=== PATIENT | male | born 1960 | race Caucasian/White ===

== ENCOUNTER → 2020-10-02 18:33 | Outpatient (REF) | payer SELFPAY ==
[2020-10-02 13:53] LABS: Abs Immature Grans 0.04 10^3/uL (0.0-0.06); Absolute Basophil Count 0.04 10^3/uL (0.0-0.2); Absolute Eosinophil Count 0.33 10^3/uL (0.0-0.7); Absolute Lymphocyte Count 1.55 10^3/uL (1.2-3.4); Absolute Monocyte Count 0.58 10^3/uL (0.1-0.8); Absolute Neutrophil Count 3.91 10^3/uL (1.2-6.7); Basophils % 0.6; Eosinophils % 5.1; HCT 44.3 % (40.0-50.0); HGB 15.2 g/dL (13.5-17.5); Immature Grans % 0.6; MCH 32.7 pg (27.0-33.0); MCHC 34.3 % (32.0-36.0); MCV 95.3 fL (80-95); MPV 11.1 fL (8.0-11.0); Neutrophils % 60.7; Nucleated RBC 0 %; RBC 4.65 10^6/uL (4.36-5.78); RDW 11.6 % (11.8-14.1); RDW-SD 40.2 fL; WBC 6.45 10^3/uL (4.4-10.8)
[2020-10-02 14:30] LABS: Diff Comment PLT Morph Reviewed
[2020-10-02 14:35] LABS: Poikilocytes 1+; Polychromasia Present
[2020-10-02 14:44] LABS: ALT 34 U/L (16-63); AST 18 U/L (15-37); Albumin 3.9 g/dL (3.4-5.0); Alkaline Phosphatase 81 U/L (46-116); Anion Gap 8.9 mmol/L (3-11); BUN 21 mg/dL (7-18); Bilirubin, Total 0.6 mg/dL (0.2-1.0); CO2 25.1 mmol/L (21.0-32.0); CREATININE 0.9 mg/dL (0.70-1.30); Calcium 9.3 mg/dL (8.5-10.1); Chloride 103 mmol/L (98-107); Glucose 101 mg/dL (74-106); Potassium 4.3 mmol/L (3.5-5.1); Sodium 137 mmol/L (136-145)
[2020-10-02 15:13] LABS: LDH 195 U/L (85-227); NT-proBNP 69 pg/mL (<300); Total Protein 7.2 g/dL (6.4-8.2)
== END ==
LOC: NCHCN 18:33
PROVIDERS: PCP Family Medicine; Visit Provider Internal Medicine
DX: R06.09 Other forms of dyspnea (principal); R05 Cough; R06.2 Wheezing; R61 Generalized hyperhidrosis
CPT/HCPCS: 80053; 83615; 83880; 85025

== ENCOUNTER 2020-10-03 01:28 | Outpatient (CLI) | payer SELFPAY ==
--- NOTE | 2020-10-03 13:33 | DI.RAD_ITS ---
EXAM: XR CHEST 2V PA LATERAL CLINICAL HISTORY: WHEEZING,R06.2,CHRONIC COUGH, R05,SWEATING TECHNIQUE: 2D digital imaging was performed. COMPARISON: No exams were available for comparison FINDINGS: MEDIASTINUM: Normal. HEART: Normal. PULMONARY VASCULATURE: Normal. LUNGS: Clear. PLEURAL SPACE: No pleural effusion or pneumothorax. BONE:Within normal limits for the patient's age. OTHER FINDINGS:Normal. IMPRESSION: No acute pulmonary findings. DATA REPOSITORY: RADIATION DOSE DELIVERED:
== END 2020-10-03 01:29 | disposition home or self-care (01) ==
LOC: DI 01:29
PROVIDERS: PCP Family Medicine; Visit Provider Internal Medicine
DX: R06.2 Wheezing (principal); R05 Cough; R61 Generalized hyperhidrosis
CPT/HCPCS: 71046

== ENCOUNTER 2021-02-19 08:45 | Outpatient (REF) | payer BC, SELFPAY ==
[2021-02-19 15:03] LABS: Vitamin D 25 Total 40.8 ng/mL (30-100)
[2021-02-19 15:06] LABS: ALT 36 U/L (16-63); AST 21 U/L (15-37); Albumin 3.7 g/dL (3.4-5.0); Alkaline Phosphatase 87 U/L (46-116); Anion Gap 10.5 mmol/L (3-11); BUN 19 mg/dL (7-18); Bilirubin, Total 0.3 mg/dL (0.2-1.0); CO2 25.5 mmol/L (21.0-32.0); CREATININE 0.9 mg/dL (0.70-1.30); Calcium 8.4 mg/dL (8.5-10.1); Chloride 105 mmol/L (98-107); Cholesterol 234 mg/dL (<200); Glucose 111 mg/dL (74-106); HDL Cholesterol 31 mg/dL (40-60); Sodium 141 mmol/L (136-145); Total Protein 6.4 g/dL (6.4-8.2); Triglyceride 637 mg/dL (<150)
[2021-02-19 15:20] LABS: LDL CHOLESTEROL 99 mg/dL (<100)
[2021-02-19 22:27] LABS: PSA, Screening 0.6 ng/mL (0.0-3.5)
== END 2021-02-19 08:46 | disposition home or self-care (01) ==
LOC: NCHCN 08:45
PROVIDERS: PCP Family Medicine; Visit Provider Family Medicine
DX: Z00.00 Encounter for general adult medical examination without abnormal findings (principal); E55.9 Vitamin D deficiency, unspecified; I10 Essential (primary) hypertension; N52.9 Male erectile dysfunction, unspecified; Z12.5 Encounter for screening for malignant neoplasm of prostate
CPT/HCPCS: 80053; 80061; 82306; 83721; 84153

== ENCOUNTER 2021-03-22 10:17 | Emergency (ER) | payer BC, SELFPAY ==
[2021-03-22] VITALS (43 sets, daily range): BP systolic 128–142; BP diastolic 82–103; PULSE 48–76; RESP 10–22; TEMP 36.6; O2SAT 93–99
--- NOTE | 2021-03-22 10:15 | RT.EKG_ITS ---
APPROVED REPORT Exam: Resting ECG Reason for Exam: dizzy Patient Location: E HR:63 bpm ECG Measurements Heart Rate 63 AXIS IA 238 P 2 QRSd 98 QRS 3 QT 383 T 12 QTc 392 Conclusion Sinus rhythm...normal P axis, V-rate 60- 99 Prolonged IA interval...IA >210, V-rate 50- 90
--- NOTE | 2021-03-22 10:45 | DI.CT_ITS ---
Exam(s) CT BRAIN NECK CTA EXAM: CT BRAIN NECK CTA CLINICAL HISTORY: Dizziness elevated blood pressure. TECHNIQUE: Imaging Protocol: Axial CT angiography was performed with multi-slice acquisition and mu lti-planar and/or 3D reconstructions. CONTRAST MATERIAL: Intravenous: Omnipaque 350 Contrast volume:structured data in ml COMPARISON: No exams were available for comparison FINDINGS: CTA Neck W: Aortic arch anatomy: The aortic arch anatomy is conventional. Anterior circulation: Both common carotid arteries exhibit normal luminal diameter. There is mild plaque on the lateral wa ll of the left carotid bifurcation-proximal left internal carotid artery but no tight stenosis at thi s level and the left internal carotid artery is patent above this level in the neck all, albeit somew hat tortuous. On the right side there is plaque on the medial wall of the carotid bulb and proximal ICA but without a significant tight stenosis at this level nor above this level in the right ICA within the neck. Posterior circulation: Both vertebral arteries originated conventional fashion off of the subclavian arteries. No prominent stenosis in the subclavian arteries proximal to the vertebral artery takeoff points. The left verte bral artery is dominant and is the main contributor to the formation of the thin basilar artery at th e skull base. The right vertebral artery is thinner diameter throughout its length and terminates at the base of the skull CTA Brain W: Anterior circulation: Both internal carotid arteries are patent in the skull base-carotid canals as well as within the intr a cavernous sinuses. The supraclinoid aspects of these vessels are patent and nonaneurysmal. Both m iddle cerebral arteries are patent. Both A1 segments are patent anterior cerebral arteries are paten t. No obvious aneurysm evident at the level of the anterior communicating artery. Posterior circulation: The thin basilar artery is formed by the dominant left vertebral artery. The right vertebral artery ends at the skull base. Distally the thin basilar artery gives off superior cerebellar arteries. Th e posterior cerebral arteries are predominantly fed by posterior communicating arteries both sides th e wlavpj-[id number]-persisting circulation. There is no aneurysm of the tip of the basilar saw ry nor elsewhere in the [id number]-tm-Yykvon. CT BRAIN: There is no evidence of intracranial hemorrhage, mass effect, or shift of midline structures. There are no extra-axial fluid collections. Ventricles are not enlarged or shifted and there is no blood w ithin the ventricular system nor within the basal cisterns. There are no ring enhancing lesions in t he brain and no abnormal meningeal enhancement. IMPRESSION: 1. Mild plaque bilaterally in the carotid bulbs and proximal ICAs but no tight stenosis at these leve ls. 2. The left vertebral artery is dominant. The thinner right vertebral artery terminates at the skul l base. 3. Patent intracranial arteries. Persistent circulation of posterior cerebral arteries which are predominantly fed by posterior communicating arteries on both sides of the [id number]. There no ring enhancing lesions in the brain. No evidence of intracranial hemorrhage. No obvious CT evidence of infarct. RADIATION DOSE DELIVERED: 2,056.42mGy.cm Total DLP DATA REPOSITORY: All CT scans at this facility are submitted to the National Radiology Data Registry (NRDR) Dose Index Registry (DIR) with the [employer] (ACR). RADIATION OPTIMIZATION: All CT scans at this facility use at least one of these dose optimization te chniques: automated exposure control; mA and/or kV adjustment per patient size (includes targeted exa ms where dose is matched to clinical indication); or iterative reconstruction.
[2021-03-22] MEDS: Meclizine 12.5 MG TAB PO (10:54)
--- NOTE | 2021-03-22 10:54 | ED.GENADUL_ITS ---
Discharge Plan Disposition Patient Disposition: HOME Condition: Improving Discharge Details Clinical Impression: Episodic peripheral vertigo Primary Care Provider: Melvin Oden ED Provider: Levi Edwards Home Meds and New Rx's Prescriptions: New meclizine 12.5 mg tablet 12.5 mg PO BID PRN (Reason: dizziness) Qty: 14 RF: 0 Continued fexofenadine 180 MG tablet 180 mg PO DAILY RF: 0 pravastatin 10 MG tablet 10 mg PO DAILY RF: 0 lisinopril 10 MG tablet 10 mg PO DAILY RF: 0 cholecalciferol (vitamin D3) 50,000 UNIT capsule 50,000 unit PO WEEKLY RF: 0 aspirin 325 MG tablet 325 mg PO DAILY RF: 0 Discharge Instructions Instructions: Vertigo (ED) Additional Instructions: Home to rest tonight. Sleep with the head of the bed elevated 2-3 pillows for 2-3 nights. No rapid movements of the head. Return to the emergency department for any acute concerns. Please follow-up with physical therapy. May use the prescribed meclizine as needed for intermittent episodes of recurrent vertigo. Follow-up with [facility] for recheck. Stand Alone Forms: Physical Therapy Referral Medical Decision Making 60-year-old male with a history of hypertension. 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 He went home to check his blood pressure which is elevated at 150. He did not have headache, syncope, chest pain or palpitations. He states to me has had progressive intermittent episodes of this over approximately 10 years and now avoids abrupt movements of the head or doing work well looking overhead. He arrives with cranial nerves intact and no focal neurologic deficits. His exam reveals a rightward gaze horizontal nystagmus with 3-4 beat seccade. Differential diagnosis is broad and includes peripheral vertigo, must exclude intracranial mass or lesion. He does not have significant hypertension I do not feel this is hypertensive urgency. Patient IV access established Given fluid bolus and meclizine. Referred for laboratory testing and CT of the head and neck.. CBC unremarkable, chemistries reassuring, troponin negative. Patient served on equipment monitor phototypesetting and repeat troponin obtained and negative and negative.. CTA without acute intracranial findings. No lesions. See formal report. Patient improved following meclizine. Given his recurrent and stuttering episodes of a similar nature, I do feel this is peripheral vertigo. I will refer him to physical therapy as well as provided with a prescription for meclizine. He is stable and improved at this time. HPI General Mode of arrival: ambulatory . Date/Time Provider Initiated Documentation: 03/22/21 10:21 . Limitations to Documentation: no limitations . Information obtained by: patient . History of Present Illness 60 year old M presents to the emergency department with the chief complaint of Lightheaded, dizzy, elevated blood pressure, described as moderate and similar to prior episodes, and is localized to the head. Patient reports no radiation. Patient started experiencing this minute(s) and it has been intermittent. Rest improves symptom(s), Movement worsens symptoms . Patient notes denies chest pain, fever/chills, headaches, syncope and weakness. Patient did receive the following treatments prior to arrival, none Related Data Home Medications Medication Instructions Recorded Confirmed aspirin 325 mg PO DAILY tab-cap 01/18/16 03/22/21 cholecalciferol (vitamin D3) 50,000 unit PO WEEKLY tab-cap 01/18/16 03/22/21 fexofenadine 180 mg PO DAILY tab-cap 01/18/16 03/22/21 lisinopril 10 mg PO DAILY tab-cap 01/18/16 03/22/21 pravastatin 10 mg PO DAILY tab-cap 01/18/16 03/22/21 meclizine 12.5 mg PO BID PRN #14 tab 03/22/21 Previous Rx's Medication Instructions Recorded meclizine 12.5 mg PO BID PRN #14 tab 03/22/21 Allergies Allergy/AdvReac Type Severity Reaction Status Date / Time No Known Allergies Allergy Verified 10/10/20 10:23 General Stated Complaint: Dizzy/Sync SHANKAR: 3 Review of Systems Narrative: Has noticed similar with abrupt movements of his head, no longer does overhead work. No recent illness. No chest pain or palpitations. 8 systems reviewed and otherwise negative [facility] Surgical History (Updated 03/22/21 @ 10:55 by Levi Edwards MD) History of Santiago fundoplication Social History Smoking/Tobacco Use Status: Never Smoking risk assessment performed?: Yes Alcohol Intake: current Alcohol Intake frequency: 3 or more drinks per day Drug use: Never Substance use type: does not use Do you feel safe at home: Yes Do you feel safe in your relationship?: Yes Exam Narrative Exam Narrative: GEN: awake, alert, oriented 3. Pleasant, well groomed, interactive. HEAD: Normocephalic, atraumatic ENT: Mucous membranes moist, oropharynx unremarkable, External ear exam unremarkable EYES: PERRL, EOMI NECK: Full ROM, no NATALIE, no menigismus CHEST/RESP: Nontender, clear to auscultation bilateral, no wheeze/rhonchi/rales CARDIOVASCULAR: RRR, no murmur, rub arleth. 2+ Rad pulse bilateral ABDOMEN: Soft, nontender, no mass. +Bowel sounds EXT: Full ROM, no edema, no rash Neuro: Cranial nerves II through XII intact. Rightward horizontal 3-4 beat nystagmus. grossly normal neurologic exam, conversant, interactive. Psych: Speech fluent, thoughts congruent, affect normal Course Vital Signs Vital signs: Vital Signs Temperature 36.6 C 03/22/21 10:24 Pulse 76 03/22/21 10:24 Respiratory Rate 18 03/22/21 10:24 Blood Pressure 142/96 H 03/22/21 10:24 Pulse Oximetry 96 03/22/21 10:24 Temperature 36.6 C 03/22/21 10:24 Temperature Source Temporal Artery Scan 03/22/21 10:24 Pulse 76 03/22/21 10:24 Respiratory Rate 18 03/22/21 10:48 Respiratory Effort Non-Labored 03/22/21 10:48 Respiratory Depth Normal 03/22/21 10:48 Respiratory Pattern Normal 03/22/21 10:48 Blood Pressure 142/96 H 03/22/21 10:24 Blood Pressure Position Sitting 03/22/21 10:24 Pulse Oximetry 96 03/22/21 10:24 Oxygen Delivery Method Room Air 03/22/21 10:24 Oxygen Flow Rate 0 03/22/21 10:24
[2021-03-22 11:01] LABS: Abs Immature Grans 0.02 10^3/uL (0.0-0.06); Absolute Basophil Count 0.03 10^3/uL (0.0-0.2); Absolute Eosinophil Count 0.11 10^3/uL (0.0-0.7); Absolute Monocyte Count 0.57 10^3/uL (0.1-0.8); Absolute Neutrophil Count 3.91 10^3/uL (1.2-6.7); Basophils % 0.5; Eosinophils % 1.8; HGB 15.8 g/dL (13.5-17.5); Immature Grans % 0.3; Lymphocytes % 25.6; MCH 32.9 pg (27.0-33.0); MCHC 35.1 % (32.0-36.0); MCV 93.8 fL (80-95); MPV 9.9 fL (8.0-11.0); Monocytes % 9.1; Neutrophils % 62.7; Nucleated RBC 0 %; Platelet Count 272 10^3/uL (130-400); RDW 11.7 % (11.8-14.1); RDW-SD 40.3 fL; WBC 6.24 10^3/uL (4.4-10.8)
[2021-03-22] MEDS: Normal Saline 1,000 ML 1000 ML IV (11:07)
[2021-03-22 11:17] LABS: ALT 40 U/L (16-63); AST 21 U/L (15-37); Albumin 3.9 g/dL (3.4-5.0); Alkaline Phosphatase 85 U/L (46-116); Anion Gap 8.9 mmol/L (3-11); BUN 12 mg/dL (7-18); Bilirubin, Total 0.4 mg/dL (0.2-1.0); CO2 26.1 mmol/L (21.0-32.0); CREATININE 0.9 mg/dL (0.70-1.30); Chloride 104 mmol/L (98-107); Glucose 104 mg/dL (74-106); Potassium 3.9 mmol/L (3.5-5.1); Sodium 139 mmol/L (136-145); Total Protein 7.3 g/dL (6.4-8.2)
[2021-03-22 11:29] LABS: Troponin I < 0.05 ng/mL (<0.06)
[2021-03-22] MEDS: Omnipaque 350 MG/ML 100 ML BTL IV (11:46)
[2021-03-22] MEDS: Normal Saline - Diluent 50 ML VIAL IV (11:47)
[2021-03-22 14:20] LABS: Troponin I < 0.05 ng/mL (<0.06)
== END 2021-03-22 14:59 | disposition home or self-care (01) ==
PROVIDERS: Emergency Provider Emergency Medicine; PCP Family Medicine
DX: H81.399 Other peripheral vertigo, unspecified ear (principal)
CPT/HCPCS: 36415; 70496; 70498; 80053; 93005; 96360; 99285; 83735; 84484; 85025; 93010; 99284; J3490

== ENCOUNTER 2021-08-27 11:19 | Outpatient (REF) | payer BC, SELFPAY ==
[2021-08-27 15:36] LABS: ALT 37 U/L (16-63); AST 16 U/L (15-37); Albumin 3.8 g/dL (3.4-5.0); Alkaline Phosphatase 83 U/L (46-116); Anion Gap 7.5 mmol/L (3-11); BUN 20 mg/dL (7-18); Bilirubin, Total 0.5 mg/dL (0.2-1.0); CO2 27.5 mmol/L (21.0-32.0); Calcium 8.7 mg/dL (8.5-10.1); Calculated LDL 124 mg/dL (<100); Chloride 104 mmol/L (98-107); Cholesterol 223 mg/dL (<200); Glucose 96 mg/dL (74-106); HDL Cholesterol 48 mg/dL (40-60); Potassium 4.5 mmol/L (3.5-5.1); Sodium 139 mmol/L (136-145); Total Protein 6.8 g/dL (6.4-8.2); Triglyceride 257 mg/dL (<150)
== END 2021-08-27 11:20 | disposition home or self-care (01) ==
LOC: NCHCN 11:19
PROVIDERS: PCP Family Medicine; Visit Provider Family Medicine
DX: I10 Essential (primary) hypertension (principal); E78.5 Hyperlipidemia, unspecified
CPT/HCPCS: 80053; 80061

== ENCOUNTER 2022-09-10 18:49 | Outpatient (REF) | payer BC, SELFPAY ==
[2022-09-10 15:22] LABS: Anion Gap 8.5 mmol/L (3-11); BUN 18 mg/dL (7-18); CO2 26.5 mmol/L (21.0-32.0); CREATININE 0.9 mg/dL (0.70-1.30); Calcium 8.8 mg/dL (8.5-10.1); Chloride 104 mmol/L (98-107); Estimated GFR 97.17 (mL/min/1.73m2); Glucose 104 mg/dL (74-106); Potassium 4.3 mmol/L (3.5-5.1); Sodium 139 mmol/L (136-145)
[2022-09-10 16:33] LABS: Hemoglobin A1C 5.4 % (<5.7)
== END 2022-09-10 18:50 | disposition home or self-care (01) ==
LOC: NCHCN 18:49
PROVIDERS: PCP Family Medicine; Visit Provider Family Medicine
DX: I10 Essential (primary) hypertension (principal); E66.9 Obesity, unspecified; F41.9 Anxiety disorder, unspecified
CPT/HCPCS: 80048; 83036

== ENCOUNTER 2022-11-18 15:03 | Outpatient (REF) | payer BC, SELFPAY ==
[2022-11-18 16:17] LABS: Bilirubin Negative (Negative); Blood Negative (Negative); Clarity Clear (Clear); Glucose Negative (Negative); Ketones Negative (Negative); Leukocyte Esterase Negative (Negative); Nitrite Negative (Negative); Specific Gravity 1.025 (1.005-1.025); Urobilinogen 0.2 mg/dL (Up to 0.2)
== END 2022-11-18 15:04 | disposition home or self-care (01) ==
LOC: NCHCN 15:03
PROVIDERS: PCP Family Medicine; Visit Provider Family Medicine
DX: R31.21 Asymptomatic microscopic hematuria (principal)
CPT/HCPCS: 81003

== ENCOUNTER 2023-09-16 15:38 | Outpatient (REF) | payer BC, SELFPAY ==
[2023-09-16 21:27] LABS: HCT 45.9 % (40.0-50.0); MCH 33.3 pg (27.0-33.0); MCHC 34.9 % (32.0-36.0); MCV 96 fL (80-95); MPV 10.2 fL (8.0-11.0); Platelet Count 283 10^3/uL (130-400); RDW 11.3 % (11.8-14.1); RDW-SD 39.9 fL; WBC 7.91 10^3/uL (4.4-10.8)
[2023-09-16 21:44] LABS: ALT 47 U/L (16-63); AST 24 U/L (15-37); Albumin 3.9 g/dL (3.4-5.0); Alkaline Phosphatase 75 U/L (46-116); Anion Gap 8.5 mmol/L (3-11); BUN 21 mg/dL (7-18); Bilirubin, Total 0.6 mg/dL (0.2-1.0); CO2 25.5 mmol/L (21.0-32.0); CREATININE 1.1 mg/dL (0.70-1.30); Chloride 104 mmol/L (98-107); Glucose 92 mg/dL (74-106); Potassium 4.1 mmol/L (3.5-5.1); Sodium 138 mmol/L (136-145)
[2023-09-16 22:00] LABS: Hemoglobin A1C 5.4 % (<5.7)
== END 2023-09-16 15:39 | disposition home or self-care (01) ==
LOC: NCHCN 15:38
PROVIDERS: PCP Family Medicine; Visit Provider Family Medicine
DX: I10 Essential (primary) hypertension (principal); R73.9 Hyperglycemia, unspecified
CPT/HCPCS: 80053; 85027; 83036

== ENCOUNTER 2024-03-31 17:22 | Outpatient (REF) | payer BC, SELFPAY ==
[2024-03-31 21:09] LABS: Abs Immature Grans 0.02 10^3/uL (0.0-0.06); Absolute Basophil Count 0.05 10^3/uL (0.0-0.2); Absolute Eosinophil Count 0.51 10^3/uL (0.0-0.7); Absolute Lymphocyte Count 1.54 10^3/uL (1.2-3.4); Absolute Monocyte Count 0.71 10^3/uL (0.1-0.8); Absolute Neutrophil Count 4.46 10^3/uL (1.2-6.7); Basophils % 0.7 %; HCT 44.1 % (40.0-50.0); HGB 14.9 g/dL (13.5-17.5); Immature Grans % 0.3 %; Lymphocytes % 21.1 %; MCH 33.4 pg (27.0-33.0); MCHC 33.8 % (32.0-36.0); MCV 99 fL (80-95); MPV 10.1 fL (8.0-11.0); Monocytes % 9.7 %; Neutrophils % 61.2 %; Platelet Count 250 10^3/uL (130-400); RBC 4.46 10^6/uL (4.36-5.78); RDW 11.9 % (11.8-14.1); RDW-SD 43.2 fL; WBC 7.29 10^3/uL (4.4-10.8)
[2024-03-31 21:23] LABS: ALT 38 U/L (16-63); AST 23 U/L (15-37); Albumin 3.7 g/dL (3.4-5.0); Alkaline Phosphatase 81 U/L (46-116); Anion Gap 10.8 mmol/L (3-11); BUN 20 mg/dL (7-18); Bilirubin, Total 0.49 mg/dL (0.2-1.0); CO2 26.2 mmol/L (21.0-32.0); Calcium 8.6 mg/dL (8.5-10.1); Chloride 109 mmol/L (98-107); Glucose 104 mg/dL (74-106); Potassium 4.2 mmol/L (3.5-5.1); Sodium 146 mmol/L (136-145); Total Protein 6.6 g/dL (6.4-8.2)
== END 2024-03-31 17:23 | disposition home or self-care (01) ==
LOC: NCHCN 17:22
PROVIDERS: PCP Family Medicine; Visit Provider Family Medicine
DX: R05.8 Other specified cough (principal)
CPT/HCPCS: 80053; 85025

== ENCOUNTER 2024-11-02 08:49 | Outpatient (REF) | payer BC, SELFPAY ==
[2024-11-02 15:04] LABS: ALT 46 U/L (16-63); AST 19 U/L (15-37); Albumin 3.7 g/dL (3.4-5.0); Alkaline Phosphatase 88 U/L (46-116); BUN 15 mg/dL (7-18); Bilirubin, Total 0.43 mg/dL (0.2-1.0); Calcium 9.3 mg/dL (8.5-10.1); Calculated LDL 137 mg/dL (<100); Chloride 106 mmol/L (98-107); Cholesterol 246 mg/dL (<200); Estimated GFR 84.57 (mL/min/1.73m2); Glucose 105 mg/dL (74-106); HDL Cholesterol 53 mg/dL (>or=40); Potassium 5.1 mmol/L (3.5-5.1); Sodium 142 mmol/L (136-145); Total Protein 6.7 g/dL (6.4-8.2); Triglyceride 282 mg/dL (<150)
== END 2024-11-02 08:50 | disposition home or self-care (01) ==
LOC: NCHCN 08:49
PROVIDERS: PCP Family Medicine; Visit Provider Family Medicine
DX: E78.5 Hyperlipidemia, unspecified (principal); I10 Essential (primary) hypertension
CPT/HCPCS: 80053; 80061

== ENCOUNTER 2025-06-28 09:54 | Outpatient (REF) | payer BC, SELFPAY ==
[2025-06-28 15:15] LABS: ALT 46 U/L (16-63); AST 20 U/L (15-37); Calculated LDL 82 mg/dL (<100); Cholesterol 167 mg/dL (<200); HDL Cholesterol 51 mg/dL (>or=40); Triglyceride 172 mg/dL (<150)
== END 2025-06-28 09:55 | disposition home or self-care (01) ==
LOC: NCHCN 09:54
PROVIDERS: PCP Family Medicine; Visit Provider Family Medicine
DX: I10 Essential (primary) hypertension (principal); E78.5 Hyperlipidemia, unspecified
CPT/HCPCS: 80061; 84450; 84460